=== PATIENT | female | born 1990 | race American Indian/Alaskan Native ===

== ENCOUNTER 2016-06-22 21:19 | Emergency (ER) | payer SELFPAY | END 2016-06-23 03:38 | disposition left against medical advice (07) | LOC: ED 21:19 | DX: M79.1 Myalgia (principal); Z53.21 Procedure and treatment not carried out due to patient leaving prior to being seen by health care provider ==

== ENCOUNTER 2016-06-26 04:08 | Emergency (ER) | payer SELFPAY ==
[2016-06-26 04:22] VITALS: BP 113/78
[2016-06-26 06:08] LABS: Bilirubin,Urine NEG (Negative); Blood,Urine NEG (Negative); Ketones,Urine NEG (Negative); Leukocyte Esterase,Urine NEG (Negative); Mucus,Urine FEW /HPF; Nitrite,Urine NEG (Negative); Protein,Urine <15 mg/dL mg/dL (Negative); Urobilinogen,Urine < 2.0 mg/dL (<2.0)
== END 2016-06-26 06:37 | disposition left against medical advice (07) ==
LOC: ED 04:08
DX: R51 Headache (principal); R56.9 Unspecified convulsions; Z53.21 Procedure and treatment not carried out due to patient leaving prior to being seen by health care provider
CPT/HCPCS: 81001; 81025

== ENCOUNTER 2017-02-16 13:38 | Emergency (ER) | payer SELFPAY | END 2017-02-16 17:42 | disposition left against medical advice (07) | LOC: ED 13:38 | DX: Z53.21 Procedure and treatment not carried out due to patient leaving prior to being seen by health care provider (principal) ==

== ENCOUNTER 2017-06-26 13:31 | Emergency (ER) | payer SELFPAY ==
[2017-06-26 14:17] VITALS: BP 120/59
== END 2017-06-26 16:22 | disposition left against medical advice (07) ==
LOC: ED 13:31
DX: R56.9 Unspecified convulsions (principal); R51 Headache; Z53.21 Procedure and treatment not carried out due to patient leaving prior to being seen by health care provider

== ENCOUNTER 2017-07-04 19:00 | Emergency (ER) | payer SELFPAY ==
[2017-07-04 19:33] VITALS: BP 110/72
[2017-07-04 20:18] LABS: Bilirubin,Urine NEG (Negative); Blood,Urine NEG (Negative); Color,Urine Yellow (Yellow); Mucus,Urine 2+ /HPF; Protein,Urine <15 mg/dL mg/dL (Negative)
[2017-07-04 20:22] LABS: HCG Qualitative,Urine Negative (Negative)
== END 2017-07-04 23:35 | disposition left against medical advice (07) ==
LOC: ED 19:00
DX: M54.2 Cervicalgia (principal); M54.9 Dorsalgia, unspecified; Z53.21 Procedure and treatment not carried out due to patient leaving prior to being seen by health care provider
CPT/HCPCS: 81001; 81025